=== PATIENT | male | born 1950 | race Caucasian/White ===

== ENCOUNTER 2019-08-02 09:00 | Day surgery (SDC) | payer MEDICARE, OTHER ==
[~2019-08-02] VITALS: Ht 170.2 cm; Wt 80.3 kg
--- NOTE | ~2019-08-02 | OR ---
[facility] [address], [place] [address] Draft DATE OF OPERATION: 08/02/2019 SURGEON: Carmen Cano MD PREOPERATIVE DIAGNOSIS: CMC arthritis, right thumb. POSTOPERATIVE DIAGNOSIS: CMC arthritis, right thumb. PROCEDURE PERFORMED: Right LRTI. DAMAGE ADJUSTER: Radha Gipson PA-C. Radha was present and critical for all portions of procedure. ANESTHESIA: General. BLOOD LOSS: Minimal. TOURNIQUET TIME: 55 minutes. IMPLANTS: Arthrex 4 mm interference screw. BRIEF HISTORY: Christian is a 69-year-old gentleman with CMC arthrosis of both thumbs. He had successful LRTI on the left and wished to proceed with the right once injections failed to control his symptoms. Risks, benefits, and alternatives were discussed with him, and he elected to proceed. DESCRIPTION OF PROCEDURE: Once consent was obtained, he was taken to the operating room. After adequate anesthesia, he was placed on operating room table. All downside pressure points were well padded. A well-padded proximal arm tourniquet was placed and the arm was prepped PATIENT NAME: CHRISTIAN LAWSON OPERATIVE REPORT DATE OF : 54 REPORT #: [id number] PHYSICIAN: CARMEN CANO MD PCP: DAVID COTO DO REPORT IS CONFIDENTIAL AND NOT TO BE RELEASED WITHOUT AUTHORIZATION [facility] [address] [place] [id number] Draft and draped in a standard sterile fashion. The arm was then exsanguinated using Esmarch bandage. Tourniquet inflated to 200 mmHg. Standard volar curved incision was made to the volar wrist, carried through skin and subcutaneous tissue. The abductor tendons were identified and retracted and protected. The capsule was then entered and elevated off the trapezium and the base of 1st metacarpal. The trapezium was dissected free of all the overlying soft tissue and was removed after splitting with an osteotome. The bone fragments were removed in total. Once this was accomplished, the FCR was identified. This was then split in 2 and harvested from a stab incision proximally. It was then split down to its insertion on the base of the 2nd metacarpal. The guide pin for the Arthrex set was then placed obliquely across the base of the first metacarpal exiting at the insertion of the FCR. It was then overdrilled using a 4 mm drill. The tendon was then pulled through this and using the push-pull method, the 1st metacarpal swirled against the 2nd interference screw was placed all under tension. The tendon was then folded back on itself and sutured with 0 Vicryl several times. The remaining tendon was then sutured into an anchovy and placed in the gap. The wound was copiously irrigated with antibiotic solution. The volar capsule was closed using 3-0 Monocryl, the subcutaneous tissue with 3-0 Monocryl, and skin with 3-0 Monocryl. Steri-Strips were applied and the wound was dressed with Adaptic, sterile gauze, and a thumb spica splint. He tolerated the procedure well. All sponge, needle, and instrument counts were correct. Carmen Cano MD BA/LEYDA /[id number] Copies: ~ PATIENT NAME: CHRISTIAN LAWSON OPERATIVE REPORT DATE OF : 54 REPORT #: [id number] PHYSICIAN: CARMEN CANO MD PCP: DAVID COTO DO REPORT IS CONFIDENTIAL AND NOT TO BE RELEASED WITHOUT AUTHORIZATION
[~2019-08-02 09:00] MED LIST: ASPIRIN EC81 MG PO; ATORVASTATIN CA40 MG PO; CARVEDILOL12.5 MG PO; FISH OIL 1,0001 EAC3 PO; IBUPROFEN400 MG PO; LOVASTATIN20 MG PO; MAGNESIUM400 M1 PO; NORCO 5-325 TA1 EACH PO; OMEPRAZOLE20 MG PO; PLAVIX75 MG PO; RANITIDINE HCL150 MG PO; TYLENOL325 MG PO; VITAMIN D32000 UNIT PO; ZOFRAN ODT8 MG PO
[2019-08-02] MEDS ORDERED: HYDROCODON-ACE1 EA11 PO (11:16)
--- NOTE | 2019-08-02 11:22 | NUR ---
08/02/19 1122 Corin Mejia 1115 PT ARRIVED IN PACU REACTIVE TO VERBAL STIMULI WITH OPA IN PLACE. 1120 PT REMOVED OPA. AWAKE AND TALKING TO STAFF.
--- NOTE | 2019-08-02 11:51 | NUR ---
PT BACK TO DS ROOM 3. FAMILY AT BEDSIDE. PT DENIES PAIN AND REPORTS COMPLETE NUMBNESS IN RUE. DENIES NAUSEA. COFFEE AND WATER PROVIDED. DC CRITERIA DISCUSSED AND PT AGREEABLE. CALL LIGHT WITHIN REACH
[2019-08-02] MEDS ORDERED: NORCO 7.5-3251 EACH PO (12:01)
--- NOTE | 2019-08-02 12:17 | NUR ---
PT ON PHONE IN ROOM. PT PROVIDED WITH CRACKERS. DENIES OTHER NEEDS. CALL LIGHT WITHIN REACH
--- NOTE | 2019-08-02 12:31 | NUR ---
PT DENIES NEED TO VOID AT THIS TIME. MORE COFFEE PROVIDED. CALL LIGHT WITHIN REACH
--- NOTE | 2019-08-02 13:23 | NUR ---
LE 1310-PT AMBULATES TO RESTROOM AND TOLERATES. PT ABLE TO VOID 225 ML CONCENTRATED, STRAW YELLOW URINE. PT BACK TO BED AND MEETS DC CRITERIA AT THIS TIME. 1315- DC INSTRUCTIONS WTH PRECAUTIONS PROVIDED. PT AND VERBALIZE UNDERSTANDING AND DENY FURTHER QUESTIONS. DC VSS. PT DRESSES SELF WITH 'S ASSISTANCE. IV DC'D WNL. PT TRANPORTED IN WHEELCHAIR TO VEHICLE DRIVEN BY .
== END 2019-08-02 13:15 | disposition home or self-care (01) ==
LOC: OPS 09:00 → DS 09:00 → OPS 11:15
PROVIDERS: Specialist
PROC: 0RQS0ZZ Repair Right Carpometacarpal Joint, Open Approach (ICD-10-PCS; principal; 2019-08-02 11:15)
DX: M18.11 Unilateral primary osteoarthritis of first carpometacarpal joint, right hand (principal); M19.041 Primary osteoarthritis, right hand; G47.33 Obstructive sleep apnea (adult) (pediatric); E03.9 Hypothyroidism, unspecified; K21.9 Gastro-esophageal reflux disease without esophagitis; I25.2 Old myocardial infarction; E83.119 Hemochromatosis, unspecified; Z86.73 Personal history of transient ischemic attack (TIA), and cerebral infarction without residual deficits; Z79.02 Long term (current) use of antithrombotics/antiplatelets; Z79.82 Long term (current) use of aspirin; Z79.899 Other long term (current) drug therapy; Z99.89 Dependence on other enabling machines and devices; Z87.891 Personal history of nicotine dependence
CPT/HCPCS: J0690; J1100; J1885; J2704; J2795; J7121